=== PATIENT | male | born 1970 | race Hispanic/Latino ===

== ENCOUNTER 2022-01-06 19:15 | Inpatient (IN) | payer SELFPAY ==
[2022-01-06 20:26] LABS: #Basophils 0.1 thou/uL (0.0-0.2); #Lymphocytes 3.3 thou/uL (1.20-3.40); #Monocytes 0.5 thou/uL (0.11-0.59); %Basophils 0.9 % (0.0-1.0); %Eosinophils 10.9 % (0.0-10.0); %Lymphocytes 37.1 % (21.0-51.0); %Monocytes 5.6 % (0.0-10.0); %Neutrophils 45.5 % (42.0-75.0); Hemoglobin 15.4 g/dL (14.0-18.0); Mean Corpuscular HGB CONC 34.1 g/dL (32.0-36.0); Mean Corpuscular Hemoglobin 31.7 pg (27.0-31.0); Mean Platelet Volume 7.9 fL (7.4-10.4); Platelet Count 331 thou/uL (130-400); RBC Distribution Width 11.4 % (11.5-14.5); Red Blood Cell (RBC) Count 4.85 mill/uL (4.70-6.10); White Blood Cell (WBC) Count 8.8 thou/uL (4.8-10.8)
[2022-01-06 20:45] LABS: ALT (SGPT) 18 U/L (8-55); AST (SGOT) 11 U/L (5-34); Albumin 4.3 g/dL (3.5-5.0); Alkaline Phosphatase 104 U/L (40-110); Anion Gap 14 mmol/L (10-20); BUN (Urea Nitrogen) 13 mg/dL (8.4-25.7); Bilirubin, Total 0.2 mg/dL (0.2-1.2); Calc. Creatinine Clearance 0 mL/min (70-130); Calcium 9.8 mg/dL (7.8-10.44); Carbon Dioxide 25 mmol/L (22-29); Chloride 100 mmol/L (98-107); Globulin 4.1 g/dL (2.4-3.5); Glucose 428 mg/dL (70-105); Potassium 4.5 mmol/L (3.5-5.1); Protein, Total 8.4 g/dL (6.0-8.3); Sodium 134 mmol/L (136-145)
[2022-01-06] MEDS ORDERED: Vancomycin 1 GM/200 ML BAG ONE (21:02)
[2022-01-06] MEDS ORDERED: Cefepime 2 GM VIAL ONE (21:02)
[2022-01-06] MEDS ORDERED: Ondansetron ODT 4 MG TAB SL PRN (22:00)
[2022-01-06] MEDS ORDERED: Ondansetron PF 4 MG/2 ML Vial IVP PRN (22:00)
[2022-01-06] MEDS ORDERED: Dextrose 5% in Water 1,000 ML IV PRN (23:00)
[2022-01-06] MEDS ORDERED: Acetaminophen 325 MG TAB PO PRN (23:00)
[2022-01-06] MEDS ORDERED: Dextrose 50% Abboject 50 ML SYRINGE SLOW IVP PRN (23:00)
[2022-01-06] MEDS ORDERED: Acetaminophen 650 MG Suppository PR PRN (23:00)
[2022-01-07 00:15] VITALS: BMI 30.5
[2022-01-07] MEDS: Sodium Chloride 0.9% 1,000 ML IV SCH ×2 (00:30→08:20)
[2022-01-07] MEDS: HumaLOG 300 UNITS/3 ML VIAL SC PRN ×5 (00:32→21:06)
[2022-01-07] MEDS ORDERED: Piperacillin/Tazobactam 3.375 GM in Sodium Chloride 0.9% 100 ML IVPB SCH (02:00)
[2022-01-07 06:09] LABS: #Basophils 0.1 thou/uL (0.0-0.2); #Lymphocytes 3.5 thou/uL (1.20-3.40); #Monocytes 0.6 thou/uL (0.11-0.59); #Neutrophils 5.5 thou/uL (1.40-6.50); %Basophils 0.8 % (0.0-1.0); %Eosinophils 9.3 % (0.0-10.0); %Lymphocytes 32.6 % (21.0-51.0); %Monocytes 5.6 % (0.0-10.0); %Neutrophils 51.7 % (42.0-75.0); Hemoglobin 13.6 g/dL (14.0-18.0); Mean Corpuscular HGB CONC 34.4 g/dL (32.0-36.0); Mean Corpuscular Volume 93.1 fL (78.0-98.0); Mean Platelet Volume 7.7 fL (7.4-10.4); Platelet Count 258 thou/uL (130-400); RBC Distribution Width 11.2 % (11.5-14.5); Red Blood Cell (RBC) Count 4.23 mill/uL (4.70-6.10); White Blood Cell (WBC) Count 10.6 thou/uL (4.8-10.8)
[2022-01-07] MEDS: Piperacillin/Tazobactam 3.375 GM in Sodium Chloride 0.9% 100 ML IVPB SCH ×3 (06:12→20:56)
[2022-01-07 06:22] LABS: Hemoglobin A1c 12.3 % (4.0-6.0)
[2022-01-07 06:37] LABS: Anion Gap 12 mmol/L (10-20); BUN (Urea Nitrogen) 11 mg/dL (8.4-25.7); Calc. Creatinine Clearance 175 mL/min (70-130); Calcium 8.6 mg/dL (7.8-10.44); Carbon Dioxide 24 mmol/L (22-29); Chloride 102 mmol/L (98-107); Glucose 256 mg/dL (70-105); Sodium 134 mmol/L (136-145)
[2022-01-07] MEDS: Enoxaparin Sodium 40 MG/0.4 ML SYRINGE SC SCH (08:19)
[2022-01-07] MEDS ORDERED: Lisinopril 5 MG TAB PO SCH (13:00)
[2022-01-07 13:25] LABS: SARS-CoV-2 NAA Rapid Test Not Detected (NotDetected)
[2022-01-07] MEDS: metFORMIN 500 MG TAB PO SCH (16:35)
[2022-01-07] MEDS ORDERED: hydrALAZINE 20 MG/ML VIAL SLOW IVP PRN (19:50)
[2022-01-08] MEDS: Piperacillin/Tazobactam 3.375 GM in Sodium Chloride 0.9% 100 ML IVPB SCH ×3 (05:00→22:09)
[2022-01-08] MEDS: HumaLOG 300 UNITS/3 ML VIAL SC PRN ×4 (05:47→20:42)
[2022-01-08] MEDS: Enoxaparin Sodium 40 MG/0.4 ML SYRINGE SC SCH (08:19)
[2022-01-08] MEDS: metFORMIN 500 MG TAB PO SCH ×2 (08:19→17:02)
[2022-01-08] MEDS: Lisinopril 5 MG TAB PO SCH (08:26)
[2022-01-08] MEDS ORDERED: fentaNYL Citrate/PF 100 MCG/2 ML SYRINGE ONE (10:19)
[2022-01-08] MEDS ORDERED: Lidocaine 1% PF 5 ML VIAL ONE (10:31)
[2022-01-08] MEDS ORDERED: PHENYLEPHRINE-NS 100 MCG/ML 10 ML SYRINGE ONE (10:31)
[2022-01-08] MEDS ORDERED: Ondansetron PF 4 MG/2 ML Vial ONE (10:31)
[2022-01-08] MEDS ORDERED: PROPOFOL 200 MG/20 ML VIAL ONE (10:31)
[2022-01-08] MEDS ORDERED: Ibuprofen 600 MG TAB PO PRN (11:07)
[2022-01-08] MEDS ORDERED: Fentanyl 100 MCG/2 ML VIAL ONE (11:37)
[2022-01-08] MEDS: traMADol HCl 50 MG TAB PO PRN (12:24)
[2022-01-08] MEDS: glipiZIDE 5 MG TAB PO SCH (17:02)
[2022-01-08] MEDS: Ibuprofen 200 MG TAB PO PRN (22:10)
[2022-01-09] MEDS: Piperacillin/Tazobactam 3.375 GM in Sodium Chloride 0.9% 100 ML IVPB SCH ×3 (05:33→22:43)
[2022-01-09] MEDS: HumaLOG 300 UNITS/3 ML VIAL SC PRN ×3 (05:34→17:25)
[2022-01-09] MEDS: Ibuprofen 200 MG TAB PO PRN ×3 (05:38→22:43)
[2022-01-09] MEDS: metFORMIN 500 MG TAB PO SCH ×2 (08:12→17:25)
[2022-01-09] MEDS: glipiZIDE 5 MG TAB PO SCH ×2 (08:12→17:25)
[2022-01-09] MEDS: Lisinopril 5 MG TAB PO SCH (08:12)
[2022-01-09] MEDS: Enoxaparin Sodium 40 MG/0.4 ML SYRINGE SC SCH (08:12)
[2022-01-10] MEDS: Piperacillin/Tazobactam 3.375 GM in Sodium Chloride 0.9% 100 ML IVPB SCH ×2 (06:00→14:30)
[2022-01-10] MEDS: metFORMIN 500 MG TAB PO SCH (08:14)
[2022-01-10] MEDS: Lisinopril 5 MG TAB PO SCH (08:14)
[2022-01-10] MEDS: Enoxaparin Sodium 40 MG/0.4 ML SYRINGE SC SCH (08:14)
[2022-01-10] MEDS: glipiZIDE 5 MG TAB PO SCH (08:14)
[2022-01-10] MEDS: traMADol HCl 50 MG TAB PO PRN (11:54)
[2022-01-10] MEDS: HumaLOG 300 UNITS/3 ML VIAL SC PRN (11:56)
[2022-01-10 14:56] VITALS: BP 138/83; TEMP 98.3
[2022-01-10] MEDS ORDERED: metFORMIN 850 MG TAB PO SCH (17:00)
== END 2022-01-10 15:03 | disposition home or self-care (01) | DRG 617 ==
LOC: ERS 19:15 → T4-A 01-07 00:03
PROVIDERS: ADMIT Student in an Organized Health Care Education/Training Program; ATTEND Family Medicine
PROC: 0Y6P0Z1 Detachment at Right 1st Toe, High, Open Approach (ICD-10-PCS; principal; 2022-01-08)
DX: E11.69 Type 2 diabetes mellitus with other specified complication (principal); E11.52 Type 2 diabetes mellitus with diabetic peripheral angiopathy with gangrene; M86.171 Other acute osteomyelitis, right ankle and foot; Z20.822 Contact with and (suspected) exposure to COVID-19; E11.65 Type 2 diabetes mellitus with hyperglycemia; E11.621 Type 2 diabetes mellitus with foot ulcer; L97.519 Non-pressure chronic ulcer of other part of right foot with unspecified severity; I10 Essential (primary) hypertension; E11.40 Type 2 diabetes mellitus with diabetic neuropathy, unspecified; Z79.899 Other long term (current) drug therapy
CPT/HCPCS: 36415; 36416; 80048; 80053; 83036; 83605; 85025; 85652; 86140; 87040; 87070; 87077; 87186; 87205; 88305; 88311; 96365; 96366; 96368; J0360; J0692; J1650; J1815; J2405; J2543; J2704; J3010; J3370; J3490; J7050; U0002